=== PATIENT | female | born 1965 | race Caucasian/White ===

== ENCOUNTER 2019-10-16 09:37 | Emergency (ER) | payer BC ==
[~2019-10-16] VITALS: Ht 167.6 cm; Wt 100.0 kg
[2019-10-16 09:54] VITALS: BP 131/92
[2019-10-16] MEDS ORDERED: METO5TAB95 PO (09:55)
[2019-10-16] MEDS ORDERED: TESTOSTERONE INJ (09:56)
== END 2019-10-16 10:45 | disposition home or self-care (01) ==
LOC: EMS 09:41
DX: R03.0 Elevated blood-pressure reading, without diagnosis of hypertension (principal); M54.5 Low back pain; F17.200 Nicotine dependence, unspecified, uncomplicated; Z48.00 Encounter for change or removal of nonsurgical wound dressing; Z88.6 Allergy status to analgesic agent; Z88.5 Allergy status to narcotic agent